=== PATIENT | female | born 1935 | race Caucasian/White ===

== ENCOUNTER 2016-11-30 16:12 | Emergency (ER) | payer MEDICARE ==
--- NOTE | 2016-11-30 16:51 | Emergency Department Record ---
History of Present Illness <Osiris Abbott - Last Filed: 11/30/16 21:32> - General Source: Patient, Family Mode of Arrival: EMS Limitations: No limitations - History of Present Illness Initial Comments: 81 yo female presents not feeling well for about 3 weeks. She reports that she is having poor appetite, pain with eating or nausea with eating, and now very weak. She denies and vomiting. No diarrhea. Last bowel movement was yesterday. No blood in the bowel movement. No fevers. No dysuria. No new back pain. She saw her PCP. He recommended a CT scan but she declined at that time. She had a history of hysterectomy and appendectomy. She reports loosing about 20 pounds. She is very weak and requiring family to help her walk at this point in time. MD Complaint: Abdominal pain Onset/Timin -: Week(s) Location: Periumbilical Radiation: Back Migration to: No migration Severity: Severe Quality: Aching Consistency: Constant Improves With: Nothing Worsens With: Nothing Associated Symptoms: Anorexia, Nausea - Related Data Patient : No <KAZ WEINSTEIN - Last Filed: 12/02/16 07:04> - General Chief Complaint: Abdominal Pain Stated Complaint: ABD PAIN Time Seen by Provider: 11/30/16 16:45 - Related Data Home Medications Medication Instructions Recorded Confirmed Last Taken Metformin HCl 1,000 mg PO BID 12/10/13 11/30/16 Unknown Simvastatin [Simvastatin] 20 mg PO DAILY 12/10/13 11/30/16 Unknown Triamterene/Hydrochlorothiazid 37.5 mg PO DAILY 12/10/13 11/30/16 Unknown [Dyazide] Insulin NPH Hum/Reg Insulin Hm 25 units SQ QAM 11/30/16 11/30/16 11/30/16 [Relion Novolin 70-30 Vial] Insulin NPH Hum/Reg Insulin Hm 35 units SQ QHS 11/30/16 11/30/16 Unknown [Relion Novolin 70-30 Vial] Allergies Allergy/AdvReac Type Severity Reaction Status Date / Time Penicillins Allergy HIVES Verified 11/30/16 16:22 Travel Screening - Travel/Exposure Within Last 30 Days Have you traveled within the last 30 days?: No - Travel/Exposure Within Last Year Have you traveled outside the [place] in the last year?: No <KAZ WEINSTEIN - Last Filed: 12/02/16 07:04> Review of Systems Constitutional: Reports: Malaise, Weakness. Denies: Chills, Fever Eyes: Denies: Eye discharge, Eye pain, Photophobia, Vision change ENT: Denies: Congestion, Throat pain Respiratory: Denies: Cough, Dyspnea, Hemoptysis, Stridor, Wheezes Cardiovascular: Denies: Chest pain, Palpitations, Syncope Endocrine: Reports: Fatigue. Denies: Polydipsia, Polyuria Gastrointestinal: Reports: As per HPI, Abdominal pain, Nausea. Denies: Constipation, Diarrhea, Hematemesis, Hematochezia, Vomiting Genitourinary: Denies: Dysuria, Urgency Musculoskeletal: Denies: Arthralgia, Back pain, Joint swelling, Myalgia, Neck pain Skin: Denies: Bruising, Change in color, Rash Neurological: Reports: Weakness (generalized). Denies: Headache, Numbness Psychiatric: Denies: Anxiety Hematological/Lymphatic: Denies: Blood Clots, Easy bleeding, Easy bruising, Swollen glands <KAZ WEINSTEIN - Last Filed: 12/02/16 07:04> Past Medical History - SOCIAL HISTORY Smoking Status: Former smoker Alcohol Use: None Drug Use: None - RESPIRATORY Hx Respiratory Disorders: Yes Hx COPD: Yes (emphysema) - CARDIOVASCULAR Hx Cardio Disorders: Yes Hx Hypertension: Yes Comment:: high cholesterol - NEURO Hx Neuro Disorders: No - GI Hx GI Disorders: Yes Hx Ulcer: Yes - Hx Genitourinary Disorders: No - ENDOCRINE Hx Endocrine Disorders: Yes Hx Diabetes: Yes (adult onset type 1) Hx Thyroid Disease: No - MUSCULOSKELETAL Hx Musculoskeletal Disorders: No - PSYCH Hx Psych Problems: No - HEMATOLOGY/ONCOLOGY Hx Hematology/Oncology Disorders: No Hx Cancer: Yes (eye) <KAZ WEINSTEIN - Last Filed: 12/02/16 07:04> Family Medical History Any Significant Family History?: Yes Hx Diabetes: Brother/Sister <KAZ WEINSTEIN - Last Filed: 12/02/16 07:04> Physical Exam - General General Appearance: Alert, Oriented x3, Cooperative, No acute distress Limitations: No limitations - Head Head exam: Normal inspection - Eye Eye exam: Normal appearance, PERRL. negative: Conjunctival injection, Periorbital swelling - ENT ENT exam: Normal exam, Mucous membranes moist Ear exam: Normal external inspection Nasal Exam: Normal inspection Mouth exam: Normal external inspection Teeth exam: Normal inspection - Neck Neck exam: Normal inspection - Respiratory Respiratory exam: Normal lung sounds bilaterally. negative: Accessory muscle use, Decreased breath sounds, Respiratory distress, Rhonchi, Stridor, Wheezes - Cardiovascular Cardiovascular Exam: Regular rate, Normal rhythm, Normal heart sounds - GI/Abdominal GI/Abdominal exam: Soft, Diminished bowel sounds, Tenderness (mild periumbilical , soft abdomen). negative: Distended, Guarding, Hernia, Rigid - Rectal Rectal exam: Deferred - exam: Deferred - Extremities Extremities exam: Normal inspection, Full ROM, Normal capillary refill. negative: Pedal edema, Tenderness - Back Back exam: Reports: Normal inspection, Full ROM. Denies: Muscle spasm, Rash noted, Tenderness - Neurological Neurological exam: Alert, Normal gait, Oriented X3 - Psychiatric Psychiatric exam: Normal affect, Normal mood - Skin Skin exam: Dry, Intact, Normal color, Warm <KAZ WEINSTEIN - Last Filed: 12/02/16 07:04> Course Vital Signs 11/30/16 11/30/16 11/30/16 16:14 17:42 18:58 Temperature 98.3 F 99.5 F Pulse Rate 82 Pulse Rate [ 75 86 Pulse Ox Probe] Respiratory 18 20 22 Rate Blood Pressure 133/66 Blood Pressure 119/98 130/65 [Right Arm] Pulse Ox 95 96 96 11/30/16 20:30 Temperature 98.6 F Pulse Rate Pulse Rate [ 87 Pulse Ox Probe] Respiratory 20 Rate Blood Pressure Blood Pressure 148/71 [Right Arm] Pulse Ox 95 <Osiris Abbott - Last Filed: 11/30/16 21:32> Vital Signs 11/30/16 16:14 Temperature 98.3 F Pulse Rate 82 Respiratory 18 Rate Blood Pressure 133/66 Pulse Ox 95 - Reevaluation(s) Reevaluation #1: The labs were reviewed WBC count is 12.2 with Hgb of 14 K is 3.3 with CR of 1.1 GFR 51 Tbili 1.3 LFT's normal Lactic acid is 2.0 UA with 6-10 WBC, +2 bacteria, with trace LE. Culture sent. The patient is tolerating the oral contrast with some mild cramps 11/30/16 18:41 11/30/16 19:[address] scan was signed out to Dr Abbott for review and disposition <KAZ WEINSTEIN - Last Filed: 12/02/16 07:04> Medical Decision Making - Lab Data Result diagrams: 11/30/16 16:05 11/30/16 16:05 Lab Results 11/30/16 11/30/16 11/30/16 Range/Units 16:05 16:05 17:15 WBC 12.2 (4.2-12.2) K/uL RBC 4.88 (3.80-5.40) M/uL Hgb 14.3 (11.6-16.0) gm/dl Hct 42.5 (35.0-47.0) % MCV 87.1 (81-97) fl MCH 29.3 (27-33) pg MCHC 33.6 (32-36) g/dl RDW 13.7 (11.5-14.5) % Plt Count 165 (130-400) K/uL MPV 13.3 H (7.4-10.4) fl Gran % 80.4 H (47-80) % Lymphocytes % 9.9 L (16-45) % Monocytes % 8.8 (0-9) % Eosinophils % 0.7 (0-6) % Basophils % 0.2 (0-6) % Sodium 136 (136-145) mmol/L Potassium 3.3 L (3.5-5.1) mmol/L Chloride 92 L (98-107) mmol/L Carbon Dioxide 28.3 (22-30) mmol/L Anion Gap 15.7 (7-16) BUN 17 (7-17) mg/dL Creatinine 1.1 H (0.52-1.04) mg/dL Estimated GFR 51 ml/min Random Glucose 94 (70-110) mg/dL Lactic Acid (0.7-2.1) mmol/L Calcium 9.7 (8.5-10.1) mg/dL Total Bilirubin 1.34 H (0.2-1.3) mg/dL AST 20 (14-36) U/L ALT 18 (9-52) U/L Alkaline Phosphatase 78 (38-126) U/L Total Protein 8.0 (6.3-8.2) gm/dL Albumin 4.7 (3.5-5.0) gm/dL Globulin 3.3 (1.4-4.8) gm/dL Albumin/Globulin Ratio 1.4 (1.1-1.8) Lipase 28 (23-300) U/L Urine Color Yellow Urine Appearance Clear Urine pH 7.5 (5.0-8.0) Ur Specific [place] 1.015 (1.002-1.030) Urine Protein Negative (NEGATIVE) Urine Glucose (UA) Negative (NEGATIVE) Urine Ketones Trace H (NEGATIVE) Urine Blood Negative (NEGATIVE) Urine Nitrite Negative (NEGATIVE) Urine Bilirubin Negative (NEGATIVE) Urine Urobilinogen 0.2 (0.20 - 1.00) E.U./dL Ur Leukocyte Esterase Trace H (NEGATIVE) Urine RBC None seen (NONE SEEN) Urine WBC 6 - 10 (0-2/hpf) Ur Epithelial Cells 3 - 6 (FEW) Urine Bacteria 2+ // Range/Units 17:22 WBC (4.2-12.2) K/uL RBC (3.80-5.40) M/uL Hgb (11.6-16.0) gm/dl Hct (35.0-47.0) % MCV (81-97) fl MCH (27-33) pg MCHC (32-36) g/dl RDW (11.5-14.5) % Plt Count (130-400) K/uL MPV (7.4-10.4) fl Gran % (47-80) % Lymphocytes % (16-45) % Monocytes % (0-9) % Eosinophils % (0-6) % Basophils % (0-6) % Sodium (136-145) mmol/L Potassium (3.5-5.1) mmol/L Chloride (98-107) mmol/L Carbon Dioxide (22-30) mmol/L Anion Gap (7-16) BUN (7-17) mg/dL Creatinine (0.52-1.04) mg/dL Estimated GFR ml/min Random Glucose (70-110) mg/dL Lactic Acid 2.0 (0.7-2.1) mmol/L Calcium (8.5-10.1) mg/dL Total Bilirubin (0.2-1.3) mg/dL AST (14-36) U/L ALT (9-52) U/L Alkaline Phosphatase (38-126) U/L Total Protein (6.3-8.2) gm/dL Albumin (3.5-5.0) gm/dL Globulin (1.4-4.8) gm/dL Albumin/Globulin Ratio (1.1-1.8) Lipase (23-300) U/L Urine Color Urine Appearance Urine pH (5.0-8.0) Ur Specific [place] (1.002-1.030) Urine Protein (NEGATIVE) Urine Glucose (UA) (NEGATIVE) Urine Ketones (NEGATIVE) Urine Blood (NEGATIVE) Urine Nitrite (NEGATIVE) Urine Bilirubin (NEGATIVE) Urine Urobilinogen (0.20 - 1.00) E.U./dL Ur Leukocyte Esterase (NEGATIVE) Urine RBC (NONE SEEN) Urine WBC (0-2/hpf) Ur Epithelial Cells (FEW) Urine Bacteria <Osiris Abbott - Last Filed: 11/30/16 21:32> - Lab Data Result diagrams: 11/30/16 16:05 11/30/16 16:05 <KAZ WEINSTEIN - Last Filed: 12/02/16 07:04> Disposition Disposition: Transfer Transfer To: [facility] Reason For Transfer: pancreatic mass w mets Accepting Physician: dr huang Time Discussed w/Accepting Physician: 21:34 <Osiris Abbott - Last Filed: 11/30/16 21:32> Disposition: Transfer Time of Disposition: 21:34 <KAZ WEINSTEIN - Last Filed: 12/02/16 07:04> Clinical Impression: Weakness, Dehydration, Mass of pancreas Abdominal pain Qualifiers: Abdominal location: unspecified location Qualified Code(s): R10.9 - Unspecified abdominal pain Nausea & vomiting Qualifiers: Vomiting type: unspecified Vomiting Intractability: unspecified Qualified Code( s): R11.2 - Nausea with vomiting, unspecified Disposition: Acute Care Hospital Transfer Condition: (2) Stable Forms: Patient Portal Access Quality - Quality Measures Quality Measures: N/A - Blood Pressure Screening Blood Pressure Classification: Pre-Hypertensive BP Reading Systolic Measurement: 133 Diastolic Measurement: 66 Screening for High Blood Pressure: < Pre-Hypertensive BP, F/U Documented > [ G8950] Pre-Hypertensive Follow-up Interventions: Follow-up with rescreen every year. <Osiris Abbott - Last Filed: 11/30/16 21:32> - Quality Measures Quality Measures: N/A - Blood Pressure Screening View Details: Yes Blood Pressure Classification: Pre-Hypertensive BP Reading Systolic Measurement: 133 Diastolic Measurement: 66 Screening for High Blood Pressure: < Pre-Hypertensive BP, F/U Documented > [ G8950] Pre-Hypertensive Follow-up Interventions: Follow-up with rescreen every year., Referral to alternative/primary care provider. <KAZ WEINSTEIN - Last Filed: 12/02/16 07:04>
[2016-11-30] MEDS ORDERED: 0.9 % SODIUM CHLORIDE 1,000 ML BAG IV ONE (16:55)
[2016-11-30] MEDS ORDERED: ONDANSETRON HCL IV 4 MG/2 ML VIAL IV ONE (16:55)
[2016-11-30 17:05] LABS: BASO % 0.2 % (0-6); EOS % 0.7 % (0-6); GRAN % 80.4 % (47-80); HEMATOCRIT 42.5 % (35.0-47.0); HEMOGLOBIN 14.3 gm/dl (11.6-16.0); LYMPH % 9.9 % (16-45); MEAN CELL VOLUME 87.1 fl (81-97); MEAN CORPUSCULAR HEMOGLOBIN 29.3 pg (27-33); MEAN CORPUSCULAR HGB CONC 33.6 g/dl (32-36); MEAN PLATELET VOLUME 13.3 fl (7.4-10.4); MONO % 8.8 % (0-9); PLATELET COUNT 165 K/uL (130-400); RED BLOOD COUNT 4.88 M/uL (3.80-5.40); RED CELL DISTRIBUTION WIDTH 13.7 % (11.5-14.5); WHITE BLOOD COUNT W/O DIFF 12.2 K/uL (4.2-12.2)
[2016-11-30 17:18] LABS: ALB/GLOB RATIO 1.4 (1.1-1.8); ALBUMIN 4.7 gm/dL (3.5-5.0); ANION GAP 15.7 (7-16); BILIRUBIN,TOTAL 1.34 mg/dL (0.2-1.3); CARBON DIOXIDE 28.3 mmol/L (22-30); CREATININE 1.1 mg/dL (0.52-1.04)
[2016-11-30 17:27] LABS: URINE APPEARANCE CLEAR; URINE BILIRUBIN NEGATIVE (NEGATIVE); URINE BLOOD NEGATIVE (NEGATIVE); URINE COLOR YELLOW; URINE GLUCOSE (UA) NEGATIVE (NEGATIVE); URINE KETONE TRACE (NEGATIVE); URINE LEUKOCYTE ESTERASE TRACE (NEGATIVE); URINE NITRITE NEGATIVE (NEGATIVE); URINE PROTEIN NEGATIVE (NEGATIVE); URINE UROBILINOGEN 0.2 E.U./dL (0.20 - 1.00)
[2016-11-30 17:39] LABS: URINE BACTERIA 2+; URINE RBC NONE SEEN (NONE SEEN)
[2016-11-30] MEDS ORDERED: ACETAMINOPHEN 1,000 MG/100 ML BTL IVPB ONE (18:38)
[2016-11-30] MEDS ORDERED: POTASSIUM CHL 20MEQ IN 1L NS 20 MEQ/1,000 ML BAG IV SCH (18:45)
[2016-11-30] MEDS ORDERED: CIPROFLOXACIN HCL 500 MG TABLET PO ONE (22:02)
--- NOTE | 2016-12-03 09:01 | CT SCAN REPORT ---
EXAM: CT OF THE ABDOMEN AND PELVIS HISTORY: PAIN, WEAKNESS, WEIGHT LOSS. TECHNIQUE: CT of the abdomen and pelvis was performed following intravenous and oral contrast administration. 100 ml of Omnipaque 300 contrast was used for this examination. Comparison: CT of the abdomen and pelvis 10/11/09. FINDINGS: Multiple lung nodules are seen at the lung bases likely due to metastasis. There are small hypodense liver lesions present. Several liver lesions are present likely due to metastatic disease. At least one hypodense splenic lesion is present suspicious for metastasis. There is a mass identified in the pancreatic body. This measures at least 5.1 x 6.1 cm in size suspicious for pancreatic neoplasm. The head of the pancreas is unremarkable. There are no calcified gallstones. The bile ducts are not dilated. No adrenal lesion seen. There is bilateral renal function. There are numerous hypodense renal lesions present. These were present previously most likely representing renal cysts. There are atherosclerotic changes in the abdominal aorta. No aneurysm identified. No enlarged periaortic lymph nodes. There are no dilated bowel loops. No pelvic mass or adenopathy. There is diverticulosis without CT evidence for diverticulitis. There is a left inguinal hernia containing a nondilated loop of sigmoid colon. No evidence for obstruction. There are arthritic changes in the lumbar spine. IMPRESSION: 1. THERE IS A LARGE MASS IN THE BODY OF THE PANCREAS AT LEAST 5 X 6 CM IN SIZE LIKELY A PANCREATIC MALIGNANCY. 2. THERE ARE SEVERAL HYPODENSE LIVER LESIONS PRESENT. THE LARGEST MEASURING ABOUT 1.5 CM IN SIZE LIKELY REPRESENTING METASTASES. 3. AT LEAST ONE SPLENIC LESION IS SEEN SUGGESTING METASTASIS. 4. NUMEROUS LUNG NODULES ARE PRESENT SUGGESTING METASTASIS. 5. MULTIPLE HYPODENSE RENAL LESIONS ARE PRESENT MOST LIKELY REPRESENTING CYSTS. 6. THERE IS A LEFT INGUINAL HERNIA CONTAINING A NONDILATED LOOP OF SIGMOID COLON. NO EVIDENCE FOR OBSTRUCTION. 7. DIVERTICULOSIS WITHOUT CT EVIDENCE FOR DIVERTICULITIS. 8. ARTHRITIC CHANGES IN THE LUMBAR SPINE. JOB NUMBER: [id number] [facility]
== END 2016-11-30 22:48 | disposition short-term general hospital (02) ==
LOC: ER 16:12
DX: K86.89 Other specified diseases of pancreas (principal); E86.0 Dehydration; R10.33 Periumbilical pain; R11.2 Nausea with vomiting, unspecified; R53.1 Weakness; E11.9 Type 2 diabetes mellitus without complications; Z79.4 Long term (current) use of insulin; I10 Essential (primary) hypertension; Z87.891 Personal history of nicotine dependence
CPT/HCPCS: 99285 ×2; 96374; 96375; 96361; 83605; 83690; 85025; 80053; 81001; 74177; Q9967; J2405; J7030